=== PATIENT | female | born 1950 ===

== ENCOUNTER 2024-08-29 05:35 | Day surgery (SDC) | payer OTHER ==
[2024-08-22 12:44] VITALS: BP 170/80
[~2024-08-29] VITALS: Ht 157.5 cm; Wt 56.7 kg
[~2024-08-29 05:35] MED LIST: GLIMEPIRIDE4 MG; METFORMIN HCL750 MG PO; SIMVASTATIN40 MG PO; SYNTHROID88 MCG PO
[2024-08-29] MEDS ORDERED: CEFTRIAXONE SODIUM 2,000 MG VIAL ONE (07:04)
[2024-08-29] MEDS ORDERED: METRONIDAZOLE/SODIUM CHLORIDE 500 MG/100 ML PIGGYBACK IV ONE (07:04)
[2024-08-29] MEDS ORDERED: POVIDONE-IODINE 118 ML BOTT TOP ONE (07:14)
[2024-08-29] MEDS ORDERED: DIBUCAINE 30 GM TUBE ONE (07:14)
[2024-08-29] MEDS ORDERED: HEMOSTATIC MATRIX 1 KIT KIT TOP ONE (07:14)
[2024-08-29] MEDS ORDERED: LIDOCAINE HCL 1%/EPINEPHRINE 20ML VIAL IJ ONE (07:14)
[2024-08-29] MEDS ORDERED: INSULIN REGULAR, HUMAN 1,000 UNIT/10 ML UNITS IV ONE (07:15)
[2024-08-29] MEDS ORDERED: NEURONTIN300 MG PO (11:48)
[2024-08-29] MEDS ORDERED: CELECOXIB200 MG PO (11:48)
[2024-08-29] MEDS ORDERED: INTESTINEX680 M1 PO (11:48)
== END 2024-08-29 12:40 | disposition home or self-care (01) ==
LOC: CIR.AMB 05:35
PROVIDERS: ATTEND Surgery
DX: C20 Malignant neoplasm of rectum (principal); D12.8 Benign neoplasm of rectum